=== PATIENT | male | born 1955 | race Caucasian/White ===

== ENCOUNTER → 2020-08-01 | Day surgery (SDC) | payer BC ==
[2020-07-29 12:30] LABS: BASOPHILS # (AUTO) 0.1 (0.0-0.1); BASOPHILS % 0.9 % (0.0-1.0); EOSINOPHILS # (AUTO) 0.1 (0.0-0.4); EOSINOPHILS % 1.2 % (0.0-6.0); HEMATOCRIT 47.7 % (38.2-49.6); HEMOGLOBIN 16.8 g/dL (14.0-18.0); LYMPHOCYTES # (AUTO) 1.4 (1.0-3.2); LYMPHOCYTES % 18.1 % (18.0-39.1); MEAN CORPUSCULAR HEMOGLOBIN 31.9 pg (28-32); MEAN CORPUSCULAR HGB CONC 35.2 g/dL (31-35); MEAN CORPUSCULAR VOLUME 90.5 fL (81-99); MONOCYTES # (AUTO) 0.6 (0.2-0.8); MONOCYTES % 8.3 % (4.4-11.3); NEUTROPHILS # (AUTO) 5.5 (2.1-6.9); NEUTROPHILS % 71.2 % (38.7-80.0); PLATELET COUNT 256 x10e3/uL (140-360); RED BLOOD COUNT 5.27 x10e6/uL (4.3-5.7); RED CELL DISTRIBUTION WIDTH 12.9 % (11.7-14.4)
[2020-07-29 12:50] LABS: ALANINE AMINOTRANSFERASE 19 IU/L (0-55); ALBUMIN 4.6 g/dL (3.5-5.0); ALBUMIN/GLOBULIN RATIO 1.4 (0.8-2.0); ALKALINE PHOSPHATASE 68 IU/L (40-150); ANION GAP 14.1 mmol/L (8-16); BLOOD UREA NITROGEN 9 mg/dL (7-26); BUN/CREATININE RATIO 10 (6-25); CALCIUM 9.8 mg/dL (8.4-10.2); CARBON DIOXIDE 31 mmol/L (22-29); CHLORIDE 100 mmol/L (98-107); CREATININE, SERUM 0.89 mg/dL (0.72-1.25); EST GLOMERULAR FILTRATION RATE > 60 ML/MIN (60-); GLUCOSE 96 mg/dL (74-118); POTASSIUM 4.1 mmol/L (3.5-5.1); SODIUM 141 mmol/L (136-145)
[2020-07-29 13:03] LABS: INR 0.99; PROTHROMBIN TIME 13.6 seconds (11.9-14.5)
[2020-07-29 13:04] LABS: PARTIAL THROMBOPLASTIN TIME 29.4 seconds (23.8-35.5)
[~2020-08-01] MED LIST: AMLODIPINE BESYL5 MG PO; CHOLESTEROL PO; EPHEDRINE SULFATE INJ 50 MG/ML VIAL ONE; FENTANYL CITRATE/PF 100MCG/2 ML INJ ONE; GLUCAGON FOR INJ 1 MG VIAL ONE; HYOSCYAMINE 0.125 MG TAB ONE; LIDOCAINE HCL 2% LOCAL INJ 5 ML SDV VIAL INJ ONE; LISINOPRIL-HCT1 EAC2 PO; METOPROLOL SUCC25 MG PO; MIDAZOLAM HCL 2 MG/2 ML VIAL ONE; PROPOFOL IV EMULSION 10 MG/ML 20 ML VIAL ONE; [UNRECOGNIZED DRUG - REMARK]
[2020-08-01 16:50] VITALS: BP 121/75
--- NOTE | 2020-08-01 17:33 | Operative Report ---
DATE OF PROCEDURE: 08/01/2020 SURGEON: Brian Duffy MD PROCEDURE: Colonoscopy with polypectomy. INDICATIONS FOR COLONOSCOPY: Colorectal cancer screening. MEDICATIONS: The patient was done under MAC, please see anesthesiologist's note. PROCEDURE IN DETAIL: With the patient in the left lateral decubitus position, a flexible fiberoptic Olympus colonoscope was inserted into the rectum with ease and advanced all the way to the cecum. It was then withdrawn slowly. Mucosa overlying the cecum appeared to be within normal limits. A minute polyp was removed per the cold biopsy forceps from the ascending colon. The transverse and descending appeared to be within normal limits. Diverticular disease was noted to involve in the sigmoid colon. An approximately 5 mm polyp was removed per hot snare polypectomy from the sigmoid colon. The rectum appeared to be within normal limits. The scope was then retroflexed into the distal rectum and small internal hemorrhoids were noted, none of which was actively bleeding. The scope was then straightened out, it was subsequently withdrawn, and the patient tolerated the procedure well. IMPRESSION: 1. Ascending colon polyp, cold biopsied. 2. Sigmoid colon polyp, hot snared. 3. Diverticulosis. 4. Internal hemorrhoids, none actively bleeding. PLAN: Follow up histology. Initiate high-fiber, low-fat diet. Initiate high-fiber supplement. The patient might benefit from a followup colonoscopy in 3 years. Brian Duffy MD [facility] /[id number] cc: Dr. Medrano at [facility]
== END | disposition home or self-care (01) ==
LOC: OR 11:25
PROVIDERS: ATTEND Internal Medicine Gastroenterology
DX: Z12.11 Encounter for screening for malignant neoplasm of colon (principal); D12.2 Benign neoplasm of ascending colon; K57.30 Diverticulosis of large intestine without perforation or abscess without bleeding; K64.8 Other hemorrhoids; K21.9 Gastro-esophageal reflux disease without esophagitis; I10 Essential (primary) hypertension; R00.1 Bradycardia, unspecified; Z01.810 Encounter for preprocedural cardiovascular examination; Z01.812 Encounter for preprocedural laboratory examination; Z11.59 Encounter for screening for other viral diseases; Z68.25 Body mass index [BMI] 25.0-25.9, adult
CPT/HCPCS: 36415; 45380; 45385; 80053; 85025; 85610; 85730; 93005; J1610; J2001; J2250; J2704; J3010; U0002